=== PATIENT | male | born 1965 | race Caucasian/White ===

== ENCOUNTER 2017-06-26 15:41 | Emergency (ER) | payer OTHER, MEDICARE ==
[~2017-06-26] VITALS: Ht 193 cm; Wt 86.2 kg
[~2017-06-26 15:41] MED LIST: FLEXERIL10 MG PO; GOOD SENSE IBU200 MG PO; LOTRIMIN AF12 GM TOP; MOBIC 15MG15 MG PO; MOBIC15 MG PO; MULTIVITAMIN1 TAB PO; PERCOCET 325 MG1 TA2 PO
[2017-06-26 15:50] VITALS: BP 130/87
[2017-06-26] MEDS ORDERED: FLAGYL500 MG PO ×2 (17:58→18:37)
[2017-06-26] MEDS ORDERED: DOXYCYCLINE HY100 M4 PO ×2 (17:58→18:37)
[2017-06-26] MEDS ORDERED: PERCOCET 5-3251 EACH PO ×2 (17:59→18:37)
--- NOTE | 2017-06-26 17:59 | ED ANIMAL BITE/WOUND CHECK ---
History of Present Illness General Chief Complaint: Animal/Insect Bite Stated Complaint: DOG BITE Source: patient Exam Limitations: no limitations Vital Signs & Intake/Output Vital Signs & Intake/Output Vital Signs Date Time Temp Pulse Resp B/P B/P Pulse O2 O2 Flow FiO2 Mean Ox Delivery Rate 06/26 1550 98.5 91 15 130/87 97 Room Air Room Air Allergies Coded Allergies: codeine (Intermediate, HIVES 06/26/17) penicillin G (Intermediate, HIVES 06/26/17) aspirin (Mild, ITCHING 06/26/17) Reconcile Medications Clotrimazole (Lotrimin AF) 12 GM CREAM..G. 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 UNKNOWN IF DOG IS UP TO DATE ON SHOTS. UNKNOWN LAST TETANUS SHOT. Triage Nurses Notes Reviewed? yes Onset: Abrupt Duration: day(s): (1), constant, continues in ED, getting worse Timing: single episode today Injury Environment: neighbor's Is Injury an Animal Bite? Yes Animal Type: dog, family pet (NEIGHBOR'S PET) Context of Animal Attack: approached animal Appearance of Animal: appeared well Animal Immunization Status: unknown Observation/Capture: animal known/obs x10 days Severity of Attack: bitten Severity: moderate, severe Severity Numbers: 9 No Modifying Factors: none HPI: 51-year-old male presents for evaluation of a dog bite to the left wrist. Patient states that his neighbor's dog bit him. He states that he was attempting to pet the dog when it snapped at him biting his left wrist. He is unsure of the dogs received his vaccines. Patient is unsure of his last tetanus shot. The dog has been acting appropriately. It will be observed and assessed for rabies/behavior. Patient reports pain in the area of his wrist. No discharge numbness tingling no swelling. Past History Travel History Traveled to [place] past 21 day No Medical History Any Pertinent Medical History? see below for history Neurological: HEAD INJURY (2012 & ) EENT: NONE Cardiovascular: NONE Respiratory: NONE Gastrointestinal: NONE Hepatic: NONE Renal: NONE Musculoskeletal: NONE Psychiatric: NONE Endocrine: NONE Blood Disorders: NONE Cancer(s): NONE VP BUSINESS DEVELOPMENT/Reproductive: NONE Surgical History Surgical History: brain surgery Psychosocial History What is your primary language Turkmen Tobacco Use: Current Daily Use Daily Tobacco Use Amount/Type: => 5 Cigarettes daily ETOH Use: occasional use Illicit Drug Use: heroin, marijuana Family History Family History, If Any: Relation not specified for: *No pertinent family history Hx Contributory? No Review of Systems Review of Systems Constitutional: Reports: no symptoms. EENTM: Reports: no symptoms. Respiratory: Reports: no symptoms. Cardiovascular: Reports: no symptoms. GI: Reports: no symptoms. Genitourinary: Reports: no symptoms. Musculoskeletal: Reports: no symptoms. Skin: Reports: see HPI (LACERATION/PUNCTURE WOUND ). Neurological/Psychological: Reports: no symptoms. Hematologic/Endocrine: Reports: no symptoms. Immunologic/Allergic: Reports: no symptoms. All Other Systems: Reviewed and Negative Physical Exam Physical Exam General Appearance: well developed/nourished, no apparent distress, alert, awake Head: atraumatic, normal appearance Eyes: Bilateral: normal appearance, EOMI. Ears, Nose, Throat: hearing grossly normal Neck: normal inspection, supple, full range of motion Respiratory: no respiratory distress Peripheral Pulses: 2+ radial (R), 2+ radial (L) Back: normal inspection, normal range of motion, no vertebral tenderness Extremities: normal range of motion, THERE ARE MULTIPLE PUNCTURE WOUNDS TO THE ANTERIOR ASPECT OF THE LEFT WRIST AND HAND. nO FOREIGN BODIES SMALL AMOUNT OF ACTIVE BLEEDING. tHERE IS A LARGER 1 CM LACERATION LOCATED IN THE ANTERIOR LEFT WRIST. nO FOREIGN BODIES. sUBCUTANEOUS TISSUE IS VISIBLE. fULL RANGE MOTION OF THE WRIST IS INTACT WITHOUT PAIN. 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 He has multiple puncture wounds to the left hand and wrist. Full range of motion intact no evidence for fracture or foreign body. The area was flushed with sterile water and Betadine. Sterile dressing applied. Patient be covered with doxycycline and Flagyl. Percocet for pain. Discussed wound care procedures in detail. Return in 2 or 3 days for a recheck of the wound. Discussed return precautions in detail patient agrees the plan Departure Departure Disposition: HOME OR SELF CARE Condition: Stable Clinical Impression Primary Impression: Dog bite Qualifiers: Encounter type: initial encounter Qualified Code: W54.0XXA - Bitten by dog, initial encounter Referrals: Ginger Manning MD (PCP/Family) Additional Instructions: Take both antibiotics as directed for the full course. Tylenol ibuprofen for pain Percocet for severe pain only this may cause drowsiness. Change dressing once daily. [place] for signs of infection like redness swelling discharge or pain. Follow-up with your primary care doctor for a recheck in 2 or 3 days. Please go over all results of today's visit with your primary care doctor. Contact your primary care doctor to let them know you were here in the emergency room. There may be nonspecific findings which may not be related to your visit today here in the emergency room but may require further evaluation and chronic monitoring by your primary care doctor. If you had a laceration today the chance of foreign body always remains. You should follow-up with your primary care doctor for recheck in 3-5 days for a wound check. If you had an x-ray done there is a chance that a fracture could have been missed on initial read and you should follow-up with your primary care doctor for repeat x-rays if symptoms persist. If your blood pressure was elevated here in the emergency room please have rechecked by her primary care doctor within the next 48 hours by your primary care doctor. If you were prescribed a narcotic here in the emergency room or any type of controlled substances you're not allowed to drive while taking this medication or operate any type of heavy machinery. Narcotics can make you feel lightheaded dizziness nausea and can cause constipation. 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 Thank you for choosing [facility] emergency room. Please return to the emergency room immediately if you have any other concerns worsening of symptoms. Departure Forms: Customer Survey General Discharge Information Prescriptions: Current Visit Scripts Doxycycline Hyclate 1 TAB PO BID #20 TAB Metronidazole (Flagyl) 1 TAB PO TID #30 TAB Oxycodone HCl/Acetaminophen (Percocet 5-325 MG Tablet) 1 TAB PO 4 TIMES/DAY PRN PAIN #8 TAB Doxycycline Hyclate 1 TAB PO BID #20 TAB Metronidazole (Flagyl) 1 TAB PO TID #30 TAB Oxycodone HCl/Acetaminophen (Percocet 5-325 MG Tablet) 1 TAB PO 4 TIMES/DAY PRN PAIN #8 TAB
[2017-09-04] MEDS ORDERED: PERCOCET 5-3251 EACH PO (19:42)
[2017-09-06] MEDS ORDERED: MELOXICAM15 M1 PO (16:53)
== END 2017-06-26 18:03 ==
LOC: ERH 15:41
DX: S61.552A Open bite of left wrist, initial encounter (principal); W54.0XXA Bitten by dog, initial encounter; Y92.9 Unspecified place or not applicable; Y93.9 Activity, unspecified
CPT/HCPCS: 90471; 90714

== ENCOUNTER 2017-06-28 10:28 | Emergency (ER) | payer OTHER, MEDICARE ==
[~2017-06-28] VITALS: Ht 193 cm; Wt 86.2 kg
[~2017-06-28 10:28] MED LIST changes: +DOXYCYCLINE HY100 M4 PO; +FLAGYL500 MG PO; +PERCOCET 5-3251 EACH PO
[2017-06-28 10:35] VITALS: BP 131/87
--- NOTE | 2017-06-28 10:56 | ED ANIMAL BITE/WOUND CHECK ---
History of Present Illness General Chief Complaint: Hand or Wrist Injury Stated Complaint: "IM IN PAIN AND STILL IN PAIN FROM DOG BITE" Source: patient, old records Exam Limitations: no limitations Vital Signs & Intake/Output Vital Signs & Intake/Output Vital Signs Date Time Temp Pulse Resp B/P B/P Pulse O2 O2 Flow FiO2 Mean Ox Delivery Rate 06/28 1035 95.6 100 18 131/87 96 Room Air Allergies Coded Allergies: codeine (Intermediate, HIVES 06/26/17) penicillin G (Intermediate, HIVES 06/26/17) aspirin (Mild, ITCHING 06/26/17) Reconcile Medications Clotrimazole (Lotrimin AF) 12 GM CREAM..G. 1 KELLEY TOP BID PRN RINGWORM apply to affected area(s) Doxycycline Hyclate 100 MG TABLET 1 TAB PO BID DOG BITE Doxycycline Hyclate 100 MG TABLET 1 TAB PO BID DOG BITE Metronidazole (Flagyl) 500 MG TABLET 1 TAB PO TID DOG BITE Metronidazole (Flagyl) 500 MG TABLET 1 TAB PO TID DOG BITE Oxycodone HCl/Acetaminophen (Percocet 5-325 MG Tablet) 5 MG-325 MG TABLET 1 TAB PO 4 TIMES/DAY PRN PAIN Oxycodone HCl/Acetaminophen (Percocet 5-325 MG Tablet) 5 MG-325 MG TABLET 1 TAB PO 4 TIMES/DAY PRN PAIN Triage Note: PT TO ER C/C LEFT HAND/ARM PAIN S/P DOG BITE FRIDAY. SEEN HERE FOR SAME. Triage Nurses Notes Reviewed? yes HPI: 51M no significant PMH, seen in [facility] 2 days ago for dog bite to left wrist and hand, discharged on Doxycycline, Flagyl, and Percocet, returns with severe pain to the left wrist. He has kept the bandage clean and dry. He denies fever , chills, nausea, vomiting, hand swelling, discharge, numbness, or weakness of the arm or hand. He feels well otherwise. He is able to move the hand. Past History Travel History Traveled to [place] past 21 day No Medical History Any Pertinent Medical History? see below for history Neurological: HEAD INJURY (2012 & ) EENT: NONE Cardiovascular: NONE Respiratory: NONE Gastrointestinal: NONE Hepatic: NONE Renal: NONE Musculoskeletal: NONE Psychiatric: NONE Endocrine: NONE Blood Disorders: NONE Cancer(s): NONE DIRECTOR OF STUDENT SERVICES/Reproductive: NONE Tetanus Vaccine: 06/26/17 Surgical History Surgical History: brain surgery Psychosocial History What is your primary language Albanian Tobacco Use: Current Daily Use Daily Tobacco Use Amount/Type: => 5 Cigarettes daily Family History Family History, If Any: Relation not specified for: *No pertinent family history Hx Contributory? No Review of Systems Review of Systems Constitutional: Reports: no symptoms. EENTM: Reports: no symptoms. Respiratory: Reports: no symptoms. Cardiovascular: Reports: no symptoms. GI: Reports: no symptoms. Genitourinary: Reports: no symptoms. Musculoskeletal: Reports: no symptoms. Skin: Reports: no symptoms. Neurological/Psychological: Reports: no symptoms. Hematologic/Endocrine: Reports: no symptoms. Immunologic/Allergic: Reports: no symptoms. All Other Systems: Reviewed and Negative Physical Exam Physical Exam General Appearance: well developed/nourished, mild distress Head: atraumatic Eyes: Bilateral: normal appearance. Ears, Nose, Throat: normal ENT inspection, hearing grossly normal Neck: normal inspection, supple Respiratory: normal breath sounds Cardiovascular: regular rate/rhythm Gastrointestinal: soft, non-tender Back: normal inspection Extremities: normal range of motion, full ROM of hand and wrists, sensation intact, normal pulses Neurologic/Psych: awake, alert, oriented x 3, normal mood/affect Skin: normal color, warm/dry, superficial bite tamia on left anterior wrist and left palm, no erythema or swelling, no fluctuance, tenderness to palpation Lymphatic: no anterior cervical gina Progress Differential Diagnosis: abscess, cellulitis, joint infection, tenosysnovitis Plan of Care: Will discharge with pain medications and instructions to continue antibiotics Departure Departure Disposition: HOME OR SELF CARE Condition: Stable Clinical Impression Primary Impression: Dog bite Referrals: Ginger Manning MD (PCP/Family) Additional Instructions: Finish your course of antibiotics. Follow up with your PCP. Return to ER if you experience numbness or weakness of the hand, change in color of the hand, wrist, or fingers, swelling, fever, chills, nausea,vomiting, or any other new or worsening symptoms. Keep the bandage clean and dry. Departure Forms: Customer Survey General Discharge Information Prescriptions: Current Visit Scripts Oxycodone HCl 1 TAB PO BIDP PRN PAIN #10 TAB
[2017-06-28] MEDS ORDERED: OXYCODONE HCL5 M1 PO (11:10)
[2017-09-04] MEDS ORDERED: PERCOCET 5-3251 EACH PO (19:42)
[2017-09-06] MEDS ORDERED: MELOXICAM15 M1 PO (16:53)
== END 2017-06-28 11:20 ==
LOC: ERH 10:28
DX: M25.532 Pain in left wrist (principal)